=== PATIENT | female | born 1960 | race African-American/Black ===

== ENCOUNTER 2024-02-12 21:22 | Inpatient (IN) | payer OTHER ==
[~2024-02-12] VITALS: Ht 162.6 cm; Wt 84.4 kg
[2024-02-12 21:59] LABS: Basophils # (auto) 0.1 10 ^3/uL (0-0.2); Basophils % (auto) 0.3 % (0.0-2.0); Eosinophils # (auto) 0 10 ^3/uL (0-0.8); Hematocrit 47.5 % (36.0-46.0); Hemoglobin 15.7 g/dL (12.2-16.2); Lymphocytes % (auto) 8.1 % (10.0-50.0); Mean Corpuscular Hemoglobin 28.1 pg (28.0-32.0); Mean Corpuscular Hgb Conc. 32.9 g/dL (32.0-36.0); Mean Corpuscular Volume 85.2 fL (80.0-100.0); Neutrophils # (auto) 20.6 10 ^3/uL (1.6-8.6); Neutrophils % (auto) 83.6 % (37.0-80.0); Nucleated Red Blood Cells % 0.1 %; Platelet Count (auto) 313 10^3/uL (140-450); Red Blood Cells 5.58 10^6/uL (4.0-5.20); Red Cell Distribution Width 15.8 % (11.8-14.3); White Blood Cell 24.7 10^3/uL (4.4-10.8)
[2024-02-12 22:13] LABS: Alanine Aminotransferase 14 U/L (7-40); Albumin 4.3 g/dL (3.2-4.8); Alkaline Phosphatase 115 U/L (46-116); Anion Gap 13 (5-15); Aspartate Aminotransferase 11 U/L (13-40); BUN/Creatinine Ratio 14.5 (10.0-20.0); Blood Urea Nitrogen 34 mg/dL (9-23); Carbon Dioxide 26 mmol/L (20-30); Chloride 94 mmol/L (98-107); Glucose 274 mg/dL (74-106); Magnesium 2.6 mg/dL (1.6-2.6); Potassium 3.2 mmol/L (3.5-5.1); Sodium 133 mmol/L (136-145)
[2024-02-12 22:14] LABS: Bilirubin, Total 1.4 mg/dL (0.2-1.0); Total Protein 7.6 g/dL (5.7-8.2)
[2024-02-12 22:23] LABS: INR 1.11 (0.9-1.15); Partial Thromboplastin Time 25.3 SEC (24.5-34.5); Prothrombin Time 11.7 sec (9.3-11.8)
[2024-02-13 00:30] VITALS: PULSE 92; RESP 17; O2SAT 99
[2024-02-13 01:00] VITALS: BP 156/73; PULSE 76; RESP 18; TEMP 98.2; O2SAT 96
[2024-02-13] MEDS: ONDANSETRON HCL 4 MG/2 ML VIAL IV ONE (01:29)
[2024-02-13] MEDS: ASPirin 81 mg TAB PO ONE ×2 (01:30→13:54)
[2024-02-13] MEDS: SUCRALFATE 1 GM TAB PO ONE (01:30)
[2024-02-13] MEDS: NITROGLYCERIN 2% OINT 1GM PKG TD ONE (01:44)
[2024-02-13] MEDS: HEPARIN DRIP/D5W 100UNITS/ML 250 ML IV SCH ×2 (02:01→09:03)
[2024-02-13] MEDS: amLODIPine BESYLATE 5 MG TAB PO ONE (06:47)
[2024-02-13] MEDS: LOSARTAN POTASSIUM 50 MG TAB PO ONE (06:48)
[2024-02-13] MEDS: hydroCHLOROthiazide 25 MG TAB PO ONE (06:49)
[2024-02-13 08:51] LABS: INR 1.17 (0.9-1.15); Prothrombin Time 12.3 sec (9.3-11.8)
[2024-02-13 08:56] LABS: Partial Thromboplastin Time 79.6 SEC (24.5-34.5)
[2024-02-13] MEDS ORDERED: NITROGLYCERIN 0.4 MG SL TAB SL PRN ×2 (13:30→14:15)
[2024-02-13] MEDS ORDERED: MORPHINE SULFATE INJ 2 MG/ml SYRG IV PRN ×2 (13:30→14:15)
[2024-02-13] MEDS: ENOXAPARIN SOD 40 MG/0.4 ML SYRINGE SC ONE (13:54)
[2024-02-13] MEDS: POTASSIUM CHL 20 Meq TABLET PO ONE (13:55)
[2024-02-13] MEDS ORDERED: hydrALAZINE HCL 20 MG/ML VL IV PRN (14:00)
[2024-02-13] MEDS: PANTOPRAZOLE 40 MG/10 ML VIAL INJ IV ONE (14:12)
[2024-02-13] MEDS ORDERED: ONDANSETRON HCL 4 MG/2 ML VIAL IV PRN (14:15)
[2024-02-13] MEDS ORDERED: HYDROcodone-ACET 5/325MG TAB PO PRN (14:15)
[2024-02-13] MEDS ORDERED: DEXTROSE (50%) 50ML SYRG IV PRN (14:15)
[2024-02-13] MEDS: cefTRIAXone 1GM/50ML D5W 50 ML IV ONE (14:25)
[2024-02-13 14:30] LABS: Basophils # (auto) 0 10 ^3/uL (0-0.2); Basophils % (auto) 0.2 % (0.0-2.0); Eosinophils # (auto) 0 10 ^3/uL (0-0.8); Eosinophils % (auto) 0.1 % (0.0-7.0); Hematocrit 44.5 % (36.0-46.0); Hemoglobin 14.6 g/dL (12.2-16.2); Lymphocytes # (auto) 2.9 10 ^3/uL (0.4-5.4); Lymphocytes % (auto) 15.7 % (10.0-50.0); Mean Corpuscular Hemoglobin 28.1 pg (28.0-32.0); Mean Corpuscular Hgb Conc. 32.7 g/dL (32.0-36.0); Mean Corpuscular Volume 85.9 fL (80.0-100.0); Monocytes # (auto) 1.6 10 ^3/uL (0-1.3); Monocytes % (auto) 8.8 % (0.0-12.0); Neutrophils # (auto) 13.8 10 ^3/uL (1.6-8.6); Neutrophils % (auto) 75.2 % (37.0-80.0); Platelet Count (auto) 270 10^3/uL (140-450); Red Blood Cells 5.18 10^6/uL (4.0-5.20); Red Cell Distribution Width 15.2 % (11.8-14.3); White Blood Cell 18.4 10^3/uL (4.4-10.8)
[2024-02-13 14:48] LABS: Alkaline Phosphatase 100 U/L (46-116); Anion Gap 9 (5-15); Aspartate Aminotransferase 10 U/L (13-40); BUN/Creatinine Ratio 16.7 (10.0-20.0); Calcium 9.3 mg/dL (8.7-10.4); Carbon Dioxide 31 mmol/L (20-30); Chloride 92 mmol/L (98-107); Glucose 244 mg/dL (74-106); LDL Cholesterol 86 mg/dL (< 100); Magnesium 2.5 mg/dL (1.6-2.6); Potassium 3.1 mmol/L (3.5-5.1); Sodium 132 mmol/L (136-145); Triglycerides 171 mg/dL (< 150)
[2024-02-13 14:49] LABS: Cholesterol 169 mg/dL (< 200); HDL Cholesterol 45 mg/dL (40-59); Total Protein 6.9 g/dL (5.7-8.2)
[2024-02-13 14:56] LABS: Alanine Aminotransferase 9 U/L (7-40); Blood Urea Nitrogen 44 mg/dL (9-23)
[2024-02-13] MEDS: CHLORTHALIDONE 25 MG TAB PO ONE (15:21)
[2024-02-13 15:33] LABS: Urine Bacteria FEW /hpf (None Seen); Urine Blood 1+ /uL (Negative); Urine Budding Yeast OCCASIONAL /hpf (None Seen); Urine Clarity Turbid (Clear); Urine Color Yellow (Yellow); Urine Mucus FEW (None Seen); Urine Protein, UAD 3+ (Negative); Urine Specific Gravity 1.015 (1.001-1.035); Urine Urobilinogen Normal (Negative); Urine WBC 4 /hpf (0 - 5)
[2024-02-13 16:00] LABS: COVID19 ANTIGEN SOFIA FIA NEGATIVE (NEGATIVE); Rapid Influenza A Negative (Negative); Rapid Influenza B Negative (Negative)
[2024-02-13] MEDS: SODIUM CHLORIDE 0.9% 1,000 ML IV SCH (16:25)
[2024-02-13 16:28] LABS: Lactic Acid w/Reflex 2.1 mmol/L (0.4-2.0)
[2024-02-13 16:56] LABS: Erythrocyte Sedimentation Rate 8 mm/hr (0-20)
[2024-02-13] MEDS: ACCU-CHEK COMFORT CURVE STRIP VI SCH (17:07)
[2024-02-13] MEDS: InsuLIN REG 1unit/0.01ml Soln (100units/ml) SC SCH ×2 (17:23→21:40)
[2024-02-13] MEDS: ATORVASTATIN 20 MG TAB PO SCH (21:42)
[2024-02-13 21:59] VITALS: BP 155/73; PULSE 70; PULSE 81; RESP 18; RESP 19; TEMP 98.4; O2SAT 96; O2SAT 97
[2024-02-13] MEDS: SODIUM CHLOR 0.9% PF (SALINE LOCK) 10ML VIAL/SYR IV SCH (22:00)
[2024-02-14 05:00] VITALS: BP 157/70; PULSE 83; RESP 17; TEMP 98.3; O2SAT 97
[2024-02-14 06:35] LABS: Basophils # (auto) 0 10 ^3/uL (0-0.2); Basophils % (auto) 0.2 % (0.0-2.0); Eosinophils # (auto) 0 10 ^3/uL (0-0.8); Eosinophils % (auto) 0.3 % (0.0-7.0); Hematocrit 43.7 % (36.0-46.0); Hemoglobin 14.4 g/dL (12.2-16.2); Lymphocytes # (auto) 2.3 10 ^3/uL (0.4-5.4); Lymphocytes % (auto) 17.6 % (10.0-50.0); Mean Corpuscular Hemoglobin 28.4 pg (28.0-32.0); Monocytes # (auto) 1.4 10 ^3/uL (0-1.3); Monocytes % (auto) 10.7 % (0.0-12.0); Neutrophils # (auto) 9.3 10 ^3/uL (1.6-8.6); Neutrophils % (auto) 71.2 % (37.0-80.0); Platelet Count (auto) 215 10^3/uL (140-450); Red Blood Cells 5.08 10^6/uL (4.0-5.20); Red Cell Distribution Width 15.1 % (11.8-14.3)
[2024-02-14 06:48] LABS: Albumin 3.6 g/dL (3.2-4.8); Alkaline Phosphatase 88 U/L (46-116); Anion Gap 12 (5-15); Aspartate Aminotransferase 12 U/L (13-40); BUN/Creatinine Ratio 17.1 (10.0-20.0); Blood Urea Nitrogen 37 mg/dL (9-23); Calcium 9.1 mg/dL (8.7-10.4); Carbon Dioxide 24 mmol/L (20-30); Chloride 100 mmol/L (98-107); Glucose 137 mg/dL (74-106); Potassium 3.1 mmol/L (3.5-5.1); Sodium 136 mmol/L (136-145)
[2024-02-14 06:49] LABS: Bilirubin, Total 0.7 mg/dL (0.2-1.0); Total Protein 6.3 g/dL (5.7-8.2)
[2024-02-14 06:56] LABS: Alanine Aminotransferase 9 U/L (7-40)
[2024-02-14] MEDS ORDERED: POTA-36 PO (07:31)
[2024-02-14] MEDS ORDERED: ATOR40TA52 PO (07:31)
[2024-02-14] MEDS ORDERED: SODI650T PO (07:31)
[2024-02-14] MEDS ORDERED: LINA5TAB PO (07:31)
[2024-02-14] MEDS ORDERED: AMLO1TAB22 PO (07:31)
[2024-02-14] MEDS ORDERED: ZOFR4T PO (07:31)
[2024-02-14] MEDS ORDERED: ASPI-543 PO (07:31)
[2024-02-14] MEDS ORDERED: EMPA1TAB3 PO (07:31)
[2024-02-14] MEDS ORDERED: GLIP10TA9 PO ×2 (07:31)
[2024-02-14] MEDS ORDERED: OMEP20TA PO (07:31)
[2024-02-14] MEDS ORDERED: LOSA-533 PO (07:31)
[2024-02-14 08:00] VITALS: PULSE 81
[2024-02-14] MEDS ORDERED: CHLORTHALIDONE 25 MG TAB PO SCH (08:00)
[2024-02-14 09:00] VITALS: BP 152/74; PULSE 80; RESP 18; TEMP 98.4; O2SAT 99
[2024-02-14] MEDS: PANTOPRAZOLE 40 MG/10 ML VIAL INJ IV SCH (09:12)
[2024-02-14] MEDS: cefTRIAXone 1GM/50ML D5W 50 ML IV SCH (09:12)
[2024-02-14] MEDS: NIFEdipine ER 30 MG TAB PO SCH (09:13)
[2024-02-14] MEDS: ASPirin 81 mg TAB PO SCH (09:13)
[2024-02-14] MEDS: ENOXAPARIN SOD 30 MG/0.3 ML SYRINGE SC SCH (09:14)
[2024-02-14] MEDS: POTASSIUM CHL 20 Meq TABLET PO ONE (09:15)
[2024-02-14] MEDS ORDERED: NITR-52 PO (11:32)
[2024-02-14 13:00] VITALS: BP 129/70; PULSE 82; RESP 20; TEMP 98.6; O2SAT 100
[2024-02-14 15:25] VITALS: BP 129/70; PULSE 82; RESP 20; TEMP 98.6; O2SAT 100
== END 2024-02-14 16:33 | disposition home or self-care (01) | DRG 871 ==
LOC: ER 21:22 → TELE 02-13 14:22 → TELE-CENTR 02-13 14:22
PROVIDERS: ADMIT Registered Nurse General Practice; ATTEND Registered Nurse General Practice
DX: A41.9 Sepsis, unspecified organism (principal); I21.A1 Myocardial infarction type 2; N39.0 Urinary tract infection, site not specified; I16.0 Hypertensive urgency; N18.9 Chronic kidney disease, unspecified; I12.9 Hypertensive chronic kidney disease with stage 1 through stage 4 chronic kidney disease, or unspecified chronic kidney disease; E11.22 Type 2 diabetes mellitus with diabetic chronic kidney disease; E87.6 Hypokalemia; K21.9 Gastro-esophageal reflux disease without esophagitis; E66.9 Obesity, unspecified; T50.995A Adverse effect of other drugs, medicaments and biological substances, initial encounter; Z79.899 Other long term (current) drug therapy; Z83.3 Family history of diabetes mellitus; Z68.32 Body mass index [BMI] 32.0-32.9, adult; Y92.89 Other specified places as the place of occurrence of the external cause
CPT/HCPCS: 36415; 71045; 74176; 80053; 80061; 81001; 82962; 83036; 83605; 83735; 83880; 84443; 84484; 85025; 85610; 85652; 85730; 86141; 87040; 87426; 87804; 93005; 93306; 99291; G0378; J1642; J1815; J2405; J2470